=== PATIENT | female | born 1965 | race Caucasian/White ===

== ENCOUNTER 2020-02-26 13:45 | Emergency (ER) | payer BC ==
[~2020-02-26] VITALS: Ht 154.9 cm; Wt 61.3 kg
[2020-02-26] MEDS ORDERED: ketorolac tromethamine 15mg/ml inj. IV ONE (14:45)
[2020-02-26] MEDS ORDERED: normal saline 1000ml 1,000 ML IV ONE (14:45)
[2020-02-26] MEDS ORDERED: proCHLORperazine 10 MG/2 ml inj IV ONE (14:45)
[2020-02-26] MEDS ORDERED: diphenhydrAMINE 50 mg/ml inj IV ONE (14:45)
[2020-02-26 16:02] VITALS: BP 147/75
== END 2020-02-26 16:05 | disposition home or self-care (01) ==
LOC: ER 13:46
DX: G44.209 Tension-type headache, unspecified, not intractable (principal)
CPT/HCPCS: 96361; 96374; 96375; 99284; J0780; J1200; J1885; J7030